=== PATIENT | male | born 1990 | race African-American/Black ===

== ENCOUNTER → 2019-08-03 | Emergency (ER) | payer SELFPAY ==
[~2019-08-03] VITALS: Ht 180.3 cm; Wt 79.4 kg
[~2019-08-03] MED LIST: AMOXICILLIN500 MG ORAL; IBUPROFEN600 MG ORAL
[2019-08-03 21:25] VITALS: BP 150/93
--- NOTE | 2019-08-03 21:25 | NUR ---
ED Nurse Note: Patient walked in to ED c/o toothache x 3 days. Stated that he is having headache too. Afebrile. No SOB. VSS.
--- NOTE | 2019-08-03 21:27 | NUR ---
ED Nurse Note: ERMD at bedside.
--- NOTE | 2019-08-03 21:33 | Emergency Room Report ---
History of Present Illness General Chief Complaint: Toothache Source: Patient Present Illness HPI Patient presents with complaints of right-sided dental pain patient reports that it started hurting about 3 hours ago Patient reports off-and-on problems on the lower side of the right side of the mouth However has not been able to see a dentist yet denies any fevers or chills denies any sore throat Denies any posterior neck pain denies any photophobia pain is 10 out of 10 Allergies: Coded Allergies: No Known Allergies (Unverified , 08/03/19) Patient History Past Medical History: see triage record Reviewed Nursing Documentation: PMH: Agreed; PSxH: Agreed Nursing Documentation-PMH Past Medical History: No History, Except For Review of Systems All Other Systems: negative except mentioned in HPI Physical Exam Vital Signs Date Time Temp Pulse Resp B/P (MAP) Pulse Ox O2 Delivery O2 Flow Rate FiO2 08/03/19 21:21 98.4 79 18 150/93 (112) 99 Room Air Sp02 EP Interpretation: reviewed, normal General Appearance: well appearing, no apparent distress Head: normocephalic, atraumatic Eyes: bilateral eye PERRL, bilateral eye EOMI ENT: hearing grossly normal, EOM grossly intact, other - Dental decay #2 tooth. No obvious surrounding fullness or fluctuance Neck: supple Respiratory: no respiratory distress, no retraction, no accessory muscle use Musculoskeletal: normal inspection Neurologic: alert, oriented x3 Psychiatric: normal inspection Skin: no rash Lymphatic: no adenopathy Medical Decision Making Diagnostic Impression: Primary Impression: Dental decay ER Course Exam and presentation multiple differentials and consideration including but not limited to dental carry, decay, abscess I cannot appreciate any obvious palpable masses or lymphadenopathy patient does have obvious signs of dental decay lower back molar on the right side #2 tooth No obvious surrounding erythema patient is provided with pain medication here placed on antibiotics and requires close dental care Last Vital Signs Date Time Temp Pulse Resp B/P (MAP) Pulse Ox O2 Delivery O2 Flow Rate FiO2 08/03/19 21:21 98.4 79 18 150/93 (112) 99 Room Air Status: improved Disposition: HOME, SELF-CARE Condition: Improved Scripts Amoxicillin* (AMOXIL*) 500 Mg Capsule 500 MG ORAL THREE TIMES A DAY, #21 CAP Prov: Cristal Larson DO 08/03/19 Ibuprofen* (MOTRIN*) 600 Mg Tablet 600 MG ORAL Q8H PRN for For Pain, #20 TAB 0 Refills Prov: Cristal Larson DO 08/03/19 Additional Instructions: Patient is provided with the discharge instructions notified to follow up with primary doctor in the next 2-3 days otherwise return to the er with any worsening symptoms. Please note that this report is being documented using DRAGON technology. This can lead to erroneous entry secondary to incorrect interpretation by the dictating instrument. Cristal Larson DO Aug 03, 2019 21:33
[2019-08-03 21:38] VITALS: BP 150/93
--- NOTE | 2019-08-03 21:38 | NUR ---
ED Nurse Note: Pt cleared by ERMD for discharge. DC instructions/prescription was given and explained to pt and verbalized understanding of teachings. All medical deviecs such as ID band removed. Pt is AAO x4, ambulatory and left with all personal belongings.
== END | disposition home or self-care (01) ==
LOC: EMR 21:50
DX: K02.9 Dental caries, unspecified (principal)
CPT/HCPCS: 99282